=== PATIENT | male | born 1930 | race Caucasian/White ===

== ENCOUNTER → 2018-11-21 | Outpatient (CLI) | payer MEDICARE ==
[~2018-11-21] MED LIST: OMNIPAQUE 350 MG/ML, 150 ML BOTTLE ONE
[2018-11-21 10:34] LABS: CREATININE 1.57 mg/dL (0.7-1.3)
== END | disposition home or self-care (01) ==
LOC: RAD 09:39
PROVIDERS: ATTEND Internal Medicine Cardiovascular Disease
DX: J90 Pleural effusion, not elsewhere classified (principal); J98.11 Atelectasis; I51.7 Cardiomegaly; N28.1 Cyst of kidney, acquired; N40.0 Benign prostatic hyperplasia without lower urinary tract symptoms; M41.84 Other forms of scoliosis, thoracic region; I70.0 Atherosclerosis of aorta; I70.1 Atherosclerosis of renal artery; K80.20 Calculus of gallbladder without cholecystitis without obstruction; K76.0 Fatty (change of) liver, not elsewhere classified; K40.90 Unilateral inguinal hernia, without obstruction or gangrene, not specified as recurrent; I65.23 Occlusion and stenosis of bilateral carotid arteries; I35.0 Nonrheumatic aortic (valve) stenosis; I10 Essential (primary) hypertension
CPT/HCPCS: 36415; 71275; 74174; 82565; 93880; 94060; 94726; 94729; Q9967

== ENCOUNTER → 2019-01-03 | Outpatient (CLI) | payer MEDICARE ==
[~2019-01-03] MED LIST changes: +ACET325T14 PO; +ASPI81TA45 PO; +CLOP75TA52 PO; +CYAN500011 PO; +FINA5TAB4 PO; +FURO20TA3 PO; +LISI-167 PO; +MAGN100T6 PO; +OMEG1CAP23 PO; -OMNIPAQUE 350 MG/ML, 150 ML BOTTLE ONE; +PLAN450T PO; +TERA10CA3 PO; +UBID100C24 PO; +VIT1TABL32 PO
== END | disposition home or self-care (01) ==
LOC: CVU 09:35
PROVIDERS: ATTEND Internal Medicine Cardiovascular Disease
DX: I08.1 Rheumatic disorders of both mitral and tricuspid valves (principal); I11.9 Hypertensive heart disease without heart failure; E78.5 Hyperlipidemia, unspecified; J90 Pleural effusion, not elsewhere classified
CPT/HCPCS: 93306

== ENCOUNTER → 2019-12-05 | Outpatient (CLI) | payer MEDICARE ==
[~2019-12-05] MED LIST changes: +APIX5TAB PO; +BRIM5DRO4 LEFTEYE; +FURO-92 PO; +LISI40TA PO; +LORA-247 PO; +MAGN420T PO; +METO-93 PO; +MULTIVITAMIN PO; +[UNRECOGNIZED DRUG - OTHER] PO
== END | disposition home or self-care (01) ==
LOC: CVU 11:41
PROVIDERS: ATTEND Internal Medicine Cardiovascular Disease
DX: I08.1 Rheumatic disorders of both mitral and tricuspid valves (principal); I65.29 Occlusion and stenosis of unspecified carotid artery; R06.02 Shortness of breath
CPT/HCPCS: 93306